=== PATIENT | male | born 1955 | race Caucasian/White ===

== ENCOUNTER 2020-01-31 08:18 | Emergency (ER) | payer SELFPAY ==
[~2020-01-31] VITALS: Ht 162.6 cm; Wt 72.2 kg
[2020-01-31 08:20] VITALS: BP 132/99
--- NOTE | 2020-01-31 08:29 | NUR ---
Pt taken in wheelchair to bed 7.
--- NOTE | 2020-01-31 08:29 | NUR ---
Patient transferred to bed 7 via wheelchair by triage nurse. RN evaluating patient at bedside.
--- NOTE | 2020-01-31 08:33 | NUR ---
64 y/o male c/o tooth pain X 1month 10 describes as sharp to right upper side of mouth. Pt took tynenol X2 with no relief. Pt also describes room as "spinning" this morning and inability to walk. +Nausea/vomiting, denies fever and chills. PMH: HTN, HLD NKA
--- NOTE | 2020-01-31 08:35 | NUR ---
Dr. Torres is evaluating the patient at bedside.
[2020-01-31] MEDS ORDERED: ONDANSETRON 4 MG ODT PO ONE ×2 (08:40→10:25)
[2020-01-31] MEDS ORDERED: MECLIZINE 25 MG TAB PO ONE (08:40)
--- NOTE | 2020-01-31 09:01 | NUR ---
EMT at bedside for EKG.
--- NOTE | 2020-01-31 09:02 | NUR ---
technology adoption manager at bedside for blood specimen.
[2020-01-31 09:12] LABS: BASOPHILS % (AUTO) 0.2 % (0.0-2.0); EOSINOPHILS % (AUTO) 0.5 % (0.0-4.0); HEMATOCRIT 39.5 % (36-52); HEMOGLOBIN 13.3 g/dL (12.0-18.0); LYMPHOCYTES % (AUTO) 12.6 % (20.5-51.1); MEAN CORPUSCULAR HEMOGLOBIN 30 pg (27-31); MEAN CORPUSCULAR HGB CONC 34 g/dL (33-37); MEAN CORPUSCULAR VOLUME 88.2 fL (80-94); MONOCYTES # (AUTO) 0.7 K/uL (0.8-1.0); MONOCYTES % (AUTO) 9.1 % (1.7-9.3); NEUTROPHILS # (AUTO) 6.2 K/uL (1.8-7.7); NEUTROPHILS % (AUTO) 77.6 % (42.2-75.2); PLATELET COUNT (AUTO) 301 K/uL (140-450); RED BLOOD CELL COUNT(AUTO) 4.47 MIL/uL (4.20-6.10); RED CELL DISTRIBUTION WIDTH 15.2 % (11.6-13.7)
[2020-01-31 09:28] LABS: PROTHROMBIN TIME 10.6 secs (10.8-13.4)
[2020-01-31 09:30] LABS: ALBUMIN 3.8 g/dL (3.4-5.0); ANION GAP 14.7 (8-16); CARBON DIOXIDE 24.7 mmol/L (21-32); CREATININE 1.2 mg/dL (0.6-1.3); POTASSIUM 4.4 mmol/L (3.5-5.1); TOTAL BILIRUBIN 1.2 mg/dL (0.0-1.0)
--- NOTE | 2020-01-31 10:09 | NUR ---
Pt states nauseaus at the moment after medications, denies vomiting. Dr. Torres made aware.
[2020-01-31 10:53] VITALS: BP 132/99
--- NOTE | 2020-01-31 10:53 | NUR ---
Patient discharged with v/s stable. Written and verbal after care instructions given and explained. Patient alert, oriented and verbalized understanding of instructions. Ambulatory with steady gait. All questions addressed prior to discharge. ID band removed. Patient advised to follow up with PMD. Rx of zofran 4mg oral tablet q 8hr, penicillin 500mg tab TID PO, and meclizine 12.5mg tab q8h PO given. Patient educated on indication of medication including possible reaction and side effects. Opportunity to ask questions provided and answered.
== END 2020-01-31 10:53 | disposition home or self-care (01) ==
LOC: MED 08:18
DX: R42 Dizziness and giddiness (principal); K04.7 Periapical abscess without sinus; I10 Essential (primary) hypertension; Z87.710 Personal history of (corrected) hypospadias
CPT/HCPCS: 36415; 70450; 80053; 84484; 85025; 85610; 85730; 93005; 99285; J8597; Q0162